=== PATIENT | female | born 1980 | race American Indian/Alaskan Native ===

== ENCOUNTER 2021-01-20 10:08 | Outpatient (CLI) | payer OTHER ==
--- NOTE | 2021-01-20 11:18 | XRay Report ---
LUMBAR SPINE HISTORY: Back pain. COMPARISON: None. TECHNIQUE: 3 view(s) of the lumbar spine obtained. FINDINGS: Vertebrae: Normal alignment. No fracture or significant abnormality. Disc Spaces:No significant abnormality. Facet Joints:Suspected mild to moderate lower lumbar facet arthropathy. Prevertebral Soft Tissues:No significant abnormality. Additional findings: None. IMPRESSION: Lumbar spine without evidence of acute osseous injury. Suspected mild to moderate lower lumbar facet arthropathy. Signer Name: Zaheer Hartman MD Signed: 01/20/2021 11:14 AM Workstation Name: [id number]
== END 2021-01-20 10:09 | disposition home or self-care (01) ==
LOC: XRAY 10:08
PROVIDERS: ATTEND Internal Medicine
DX: M54.50 Low back pain, unspecified (principal)
CPT/HCPCS: 72100